=== PATIENT | female | born 1970 | race Caucasian/White ===

== ENCOUNTER 2018-09-10 20:11 | Emergency (ER) | payer MEDICAID, OTHER ==
[~2018-09-10] VITALS: Ht 162.6 cm; Wt 80.3 kg
[2018-09-10 20:15] VITALS: RESP 18; Ht 162.6 cm; Wt 80.3 kg
[2018-09-10] MEDS ORDERED: SOD CHLORIDE 0.9% 500 ML IV STA (20:56)
[2018-09-10] MEDS ORDERED: FAMOTIDINE 20 MG INJ IV STA (20:56)
[2018-09-10] MEDS ORDERED: ONDANSETRON 4 MG INJ IV STA (20:56)
--- NOTE | 2018-09-10 20:56 | ERD ---
ER Documentation Chief Complaint Chief Complaint RUQ PAIN RADIATING TO BACK X'S 4 DAYS HPI 47-year-old female, previously healthy, presents to the emergency department, complaining of 4 days with worsening of right upper quadrant pain radiating to the back, described as dull, constant, 7/10. She denies nausea or vomiting, no diarrhea or constipation, no fever or chills. She also reports a history of similar episodes in the past. ROS All systems reviewed and are negative except as per history of present illness. Medications Home Meds Active Scripts Acetaminophen* (Tylenol*) 325 Mg Tablet, 2 TAB PO Q6 PRN for PAIN AND OR ELEVATED TEMP, #20 TAB Prov:YVETTE DIAZ MD 09/10/18 Ranitidine Hcl* (Zantac*) 150 Mg Tablet, 150 MG PO BID PRN for EPIGASTRIC PAIN for 15 Days, #30 TAB Prov:YVETTE DIAZ MD 09/10/18 Allergies Allergies: Coded Allergies: No Known Allergy (Unverified , 06/23/13) PMhx/Soc Medical and Surgical Hx: pt denies Surgical Hx History of Surgery: No Anesthesia Reaction: No Hx Neurological Disorder: No Hx Respiratory Disorders: No Hx Cardiac Disorders: Yes (HTN ) Hx Psychiatric Problems: No Hx Miscellaneous Medical Probl: No Hx Alcohol Use: No Hx Substance Use: No Hx Tobacco Use: No Smoking Status: Never smoker Physical Exam Vitals Vital Signs Date Temp Pulse Resp B/P (MAP) Pulse Ox O2 O2 Flow FiO2 Time Delivery Rate 09/10/18 97.0 78 18 183/84 98 20:15 (117) Physical Exam Patient alert, oriented, vital signs stable. HEAD: Normocephalic, atraumatic. EYES: PERRLA, EOMI, Sclera and conjunctiva appear normal. NOSE: Clear and patent nostrils. EARS: Canals clear, tympanic membranes WNL. MOUTH: normal lips and tongue, no oral lesions. THROAT: Normal oropharynx, no tonsillar exudates. NECK: Supple, No lymphadenopathy. Full ROM without pain or tenderness. HEART: RRR, no rubs, murmurs, clicks or gallops. LUNGS: Clear to auscultation. ABDOMEN: Soft, mild tenderness to deep palpation of the epigastric area,? Wallace sign, without masses or hepatosplenomegaly. EXTREMITIES: No edema bilaterally. BACK: Full ROM, no deformity, normal back exam NEURO: Cranial nerves grossly intact, no motor or sensory deficit SKIN: No rashes, no petechia. Result Diagram: 09/10/18211709/10/182117 Results 24 hrs Laboratory Tests Test 09/10/18 21:18 White Blood Count 7.2 10^3/ul Red Blood Count 4.35 10^6/ul Hemoglobin 11.6 g/dl Hematocrit 36.5 % Mean Corpuscular Volume 83.9 fl Mean Corpuscular Hemoglobin 26.7 pg Mean Corpuscular Hemoglobin Concent 31.8 g/dl Red Cell Distribution Width 14.3 % Platelet Count 260 10^3/UL Mean Platelet Volume 10.1 fl Immature Granulocytes % 0.300 % Neutrophils % 47.7 % Lymphocytes % 41.5 % Monocytes % 6.1 % Eosinophils % 3.6 % Basophils % 0.8 % Nucleated Red Blood Cells % 0.0 /100WBC Immature Granulocytes # 0.020 10^3/ul Neutrophils # 3.4 10^3/ul Lymphocytes # 3.0 10^3/ul Monocytes # 0.4 10^3/ul Eosinophils # 0.3 10^3/ul Basophils # 0.1 10^3/ul Nucleated Red Blood Cells # 0.0 10^3/ul Urine Color YELLOW Urine Clarity SLIGHTLY CLOUDY Urine pH 6.0 Urine Specific Cu[place] 1.021 Urine Ketones NEGATIVE mg/dL Urine Nitrite NEGATIVE mg/dL Urine Bilirubin NEGATIVE mg/dL Urine Urobilinogen NEGATIVE mg/dL Urine Leukocyte Esterase NEGATIVE Jennie/ul Urine Microscopic RBC 2 /HPF Urine Microscopic WBC 1 /HPF Urine Squamous Epithelial Cells FEW /HPF Urine Hemoglobin 1+ mg/dL Urine Glucose NEGATIVE mg/dL Urine Total Protein NEGATIVE mg/dl Urine Test NEGATIVE Sodium Level 142 mmol/L Potassium Level 4.0 mmol/L Chloride Level 106 mmol/L Carbon Dioxide Level 27 mmol/L Anion Gap 9 Blood Urea Nitrogen 18 mg/dl Creatinine 0.97 mg/dl Est Glomerular Filtrat Rate mL/min > 60 mL/min Glucose Level 85 mg/dl Calcium Level 9.4 mg/dl Total Bilirubin 0.4 mg/dl Direct Bilirubin 0.00 mg/dl Indirect Bilirubin 0.4 mg/dl Aspartate Amino Transf (AST/SGOT) 29 IU/L Alanine Aminotransferase (ALT/SGPT) 36 IU/L Alkaline Phosphatase 65 IU/L Total Protein 7.7 g/dl Albumin 4.4 g/dl Globulin 3.30 g/dl Albumin/Globulin Ratio 1.33 Lipase 182 U/L Current Medications Medications Dose Sig/Carli Start Time Status Last (Trade) Ordered Route PRN Stop Time Admin Dose Reason Admin Sodium 500 ml @ Q1H STAT 09/10/18 DC 09/10/18 Chloride 500 mls/hr IV 20:56 21:26 09/10/18 21:55 Ondansetron 4 mg ONCE STAT 09/10/18 DC 09/10/18 HCl (Zofran IV 20:56 21:25 Inj) 09/10/18 21:02 Famotidine 20 mg ONCE STAT 09/10/18 DC 09/10/18 (Pepcid Iv) IV 20:56 21:25 09/10/18 21:02 Patient: INEZ AGUILAR : 1970 Age: 47 Sex: F MR #: [id number] DOS: 09/10/182055 Ordering MD: YVETTE DIAZ MD Location: [facility] Room/Bed: PROCEDURE: US Abdomen. CLINICAL INDICATION: abdominal pain TECHNIQUE: Multiple real-time images were acquired of the patient's right upper quadrant abdomen and retroperitoneum utilizing a high resolution transducer. COMPARISON: 06/23/13 FINDINGS: The liver demonstrates increased echogenicity. The liver is enlarged in size and no focal solid lesions are seen. The liver measures 19.3 cm in length. The portal vein is patent with normal direction of flow. No intrahepatic biliary dilatation is seen. The gallbladder is contracted. No gallstones are identified within the gallbladder. There is no pericholecystic fluid or gallbladder wall thickening. The common bile duct measures 4 mm in maximal dimension. The visualized portions of the pancreas are unremarkable. The tail of the pancreas is not seen. No free fluid is identified. The right kidney is normal in size, and demonstrate normal echogenicity and cortical thickness. The right kidney measures 11.5 cm in long dimension. There is no evidence of hydronephrosis. There are no kidney stones. RPTAT: AA IMPRESSION: Mild hepatomegaly with fatty liver. Procedures/MDM Vital signs stable. Differential diagnosis include but not limited to: UTI, colitis, gastroenteritis, kidney stones, irritable bowel syndrome, inflammatory bowel syndrome, malabsorption syndrome, cholelithiasis, food intolerance, medication side effect, pancreatitis, diverticulitis, bowel obstruction. Physical examination and clinical presentation consistent most likely with GERD, no evidence of acute abdomen. During the ED course the patient remained stable, no new complaints. The patient received treatment with IV fluids and IV medications presenting overall improvement of the symptoms. Results and clinical impression discussed with the patient who agrees with management. The patient is stable to be treated outpatient and will be discharg ed home; some side effects of prescribed medications (headache, rash, nausea, vomiting, diarrhea, drowsiness, habituation, bleeding, hypertension, interactions with other medications) were reviewed. The patient was informed that the evaluation in the emergency department has been done to rule out an acute emergency, therefore, chronic conditions like malignancy or other diseases have not been evaluated; therefore, the patient was instructed to follow up with the primary care provider in the next 48h. If symptoms persist, worsen or new symptoms develop, then patient should return to the ED immediately. Instructions explained and given directly by me to the patient with acknowledgment and demonstrated understanding. Disclaimer: Inadvertent spelling and grammatical errors are likely due to EHR/dictation software use and do not reflect on the overall quality of patient care. Also, please note that the electronic time recorded on this note does not necessarily reflect the actual time of the patient encounter. Departure Diagnosis: Primary Impression: Abdominal pain Additional Impression: GERD (gastroesophageal reflux disease) Condition: Stable Additional Instructions: Muchas cara por [facility] para dudley servicio. Esperamos que en dudley visita a la shirlene de emergencia dudley problema medico haya sido solucionado y que se sienta mucho mejor. Para estar seguros que dudley mejoria sigue en proceso, le pedimos el favor de hacer rolly brenna de seguimiento medico con dudley doctor primario en los proximos 2-4 carrero. Lleve con usted estos documentos y las medicinas recetadas. Si kole sintomas empeoran, NO SE ESPERE, por favor regrese a shirlene de emergencia INMEDIATAMENTE. En kaylynn que usted no tenga un mdico de atencin primaria: Llame al mdico o clnica comunitaria de referencia que aparece abajo kari las horas de consultorio para hacer rolly brenna para que le vean. CLINICAS: [facility] [phone] [address] [facility] [phone] [address] [facility] [phone] [address] [facility] [phone] [address] [facility] [phone] [address] [facility]. [phone] YVETTE RIVERA MD Sep 10, 2018 20:56
[2018-09-10] MEDS ORDERED: RANI150T35 PO (22:17)
[2018-09-10] MEDS ORDERED: ACET325T33 PO (22:19)
[2018-09-10 22:38] VITALS: BP 127/74; PULSE 62
== END 2018-09-10 22:39 | disposition home or self-care (01) ==
LOC: FTE 20:11
DX: K21.9 Gastro-esophageal reflux disease without esophagitis (principal); I10 Essential (primary) hypertension
CPT/HCPCS: 36415; 76705; 80053; 81001; 83690; 84703; 85025; 96374; 96375; J2405; J7040; Z7502; Z7610

== ENCOUNTER 2018-12-03 06:28 | Emergency (ER) | payer OTHER ==
[~2018-12-03] VITALS: Ht 157.5 cm; Wt 78.0 kg
[~2018-12-03 06:28] MED LIST: ACET325T33 PO; RANI150T35 PO
[2018-12-03 06:30] VITALS: BP 140/78; PULSE 78; RESP 18; Ht 157.5 cm; Wt 78.0 kg
[2018-12-03] MEDS ORDERED: LEVO5TAB28 PO (06:47)
[2018-12-03] MEDS ORDERED: NAPR-985 PO (06:47)
--- NOTE | 2018-12-03 07:08 | ERD ---
ER Documentation Chief Complaint Chief Complaint SORE THROAT HPI 47-year-old female presenting with sore throat x14 days. Patient has no runny nose and has a mild dry cough. Denies fevers. Takes Motrin occasionally with mild alleviation however pain returns. Pain with swallowing. Denies any neck pain. Has never had this pain before. Medical history is hypertension. NKDA. Surgical history . Social history denies ROS All systems reviewed and are negative except as per history of present illness. Medications Home Meds Active Scripts Levocetirizine Dihydrochloride (Xyzal) 5 Mg Tablet, 5 MG PO QPM, #30 TAB Prov:KOREY MAGALLON PA-C 12/03/18 Naproxen* (Naprosyn*) 500 Mg Tablet, 500 MG PO BID PRN for PAIN AND/OR INFLAMMATION, #30 TAB Prov:KOREY MAGALLON PA-C 12/03/18 Acetaminophen* (Tylenol*) 325 Mg Tablet, 2 TAB PO Q6 PRN for PAIN AND OR ELEVATED TEMP, #20 TAB Prov:YVETTE DIAZ MD 09/10/18 Ranitidine Hcl* (Zantac*) 150 Mg Tablet, 150 MG PO BID PRN for EPIGASTRIC PAIN for 15 Days, #30 TAB Prov:YVETTE DIAZ MD 09/10/18 Allergies Allergies: Coded Allergies: No Known Allergy (Unverified , 06/23/13) PMhx/Soc History of Surgery: No Anesthesia Reaction: No Hx Neurological Disorder: No Hx Respiratory Disorders: No Hx Cardiac Disorders: Yes (HTN ) Hx Psychiatric Problems: No Hx Miscellaneous Medical Probl: No Hx Alcohol Use: No Hx Substance Use: No Hx Tobacco Use: No Smoking Status: Never smoker FmHx Family History: No diabetes, No coronary disease, No other Physical Exam Vitals Vital Signs Date Temp Pulse Resp B/P (MAP) Pulse Ox O2 O2 Flow FiO2 Time Delivery Rate 12/03/18 98.1 78 18 140/78 99 06:30 (98) Physical Exam GENERAL: The patient is well-appearing, well-nourished, in no acute distress HEENT: Atraumatic. Conjunctivae are pink. Pupils equal, round, and reactive to light. There is no scleral icterus. Tympanic membranes clear bilaterally. Oropharynx clear. NECK: C-spine is soft and supple. There is no meningismus. There is no cervical lymphadenopathy. CHEST: Clear to auscultation bilaterally. There are no rales, wheezes or rhonchi. HEART: Regular rate and rhythm. No murmurs, clicks, rubs or gallops. Procedures/MDM MDM: 47-year-old female presenting with a sore throat. Patient's oral exam is within normal limits. I have low suspicion for peritonsillar retropharyngeal abscess. I have low suspicion for strep throat. I have low suspicion for infectious process. I have low suspicion for throat thyroid abnormality. Patient exam is within normal limits. Patient likely has viral syndrome. Patient is discharged with strict ER precautions and told to follow-up with primary care within 1 to 2 days for close evaluation. Patient is told symptoms change or worsen to return immediately to the ER. All questions answered at discharge Departure Diagnosis: Primary Impression: Sore throat Condition: Stable Patient Instructions: When You Have a Sore Throat Referrals: [facility] YOU HAVE RECEIVED A MEDICAL SCREENING EXAM AND THE RESULTS INDICATE THAT YOU DO NOT HAVE A CONDITION THAT REQUIRES URGENT TREATMENT IN THE EMERGENCY DEPARTMENT. FURTHER EVALUATION AND TREATMENT OF YOUR CONDITION CAN WAIT UNTIL YOU ARE SEEN IN YOUR DOCTORS OFFICE WITHIN THE NEXT 1-2 DAYS. IT IS YOUR RESPONSIBILITY TO MAKE AN APPOINTMENT FOR FOLOW-UP CARE. IF YOU HAVE A PRIMARY DOCTOR --you should call your primary doctor and schedule an appointment IF YOU DO NOT HAVE A PRIMARY DOCTOR YOU CAN CALL OUR PHYSICIAN REFERRAL HOTLINE AT IF YOU CAN NOT AFFORD TO SEE A PHYSICIAN YOU CAN CHOSE FROM THE FOLLOWING [facility] [address] [facility]. [facility] [address] [facility] [facility] [address] [facility] [facility] [address] [facility]. [facility] [address] [facility]. [facility]. [address] Additional Instructions: FOLLOW UP WITH YOUR PRIMARY CARE PHYSICIAN TOMORROW.Return to this facility if you are not improving as expected. KOREY MAGALLON PA-C Dec 03, 2018 07:07
== END 2018-12-03 06:56 | disposition home or self-care (01) ==
LOC: FTE 06:28
DX: J02.9 Acute pharyngitis, unspecified (principal); I10 Essential (primary) hypertension
CPT/HCPCS: 99282

== ENCOUNTER 2019-01-11 12:59 | Emergency (ER) | payer OTHER ==
[~2019-01-11] VITALS: Ht 167.6 cm; Wt 79.4 kg
[~2019-01-11 12:59] MED LIST changes: +ABCC1C PO; +AMLO2.5T78 PO; +HYDR25TA6 PO; +LEVO5TAB28 PO; +NAPR-985 PO
[2019-01-11 13:01] VITALS: BP 148/94; PULSE 82; RESP 18; Ht 167.6 cm; Wt 79.4 kg
--- NOTE | 2019-01-11 13:51 | ERD ---
ER Documentation Chief Complaint Chief Complaint headache x2 days, thinks blood pressure high HPI 48-year-old female, with history of hypertension, presents the emergency department, complaining of 2 days with headache, described as throbbing, intermittent, 12/04. The patient feels like her blood pressure is high and she is requesting a refill for amlodipine and hydrochlorothiazide. Otherwise, the patient denies blurred vision, no fever, no chills, no neck rigidity, no distal weakness, numbness or tingling. ROS All systems reviewed and are negative except as per history of present illness. Medications Home Meds Active Scripts Tkvetwzlifbjg-Pypfrlvgxu-Lutwxdlb-Codeine* (Fioricet w/Codeine*) [id number] Cap, 1 CAP PO BID PRN for PAIN LEVEL 1-5, #10 CAP Prov:YVETTE DIAZ MD 01/11/19 Hydrochlorothiazide* (Hydrochlorothiazide*) 25 Mg Tab, 25 MG PO DAILY, #30 TAB Prov:YVETTE DIAZ MD 01/11/19 Amlodipine Besylate* (Amlodipine Besylate*) 2.5 Mg Tablet, 2.5 MG PO DAILY, #30 TAB Prov:YVETTE DIAZ MD 01/11/19 Levocetirizine Dihydrochloride (Xyzal) 5 Mg Tablet, 5 MG PO QPM, #30 TAB Prov:KOREY MAGALLON PA-C 12/03/18 Naproxen* (Naprosyn*) 500 Mg Tablet, 500 MG PO BID PRN for PAIN AND/OR INFLAMMATION, #30 TAB Prov:KOREY MAGALLON PA-C 12/03/18 Acetaminophen* (Tylenol*) 325 Mg Tablet, 2 TAB PO Q6 PRN for PAIN AND OR ELEVATED TEMP, #20 TAB Prov:YVETTE DIAZ MD 09/10/18 Ranitidine Hcl* (Zantac*) 150 Mg Tablet, 150 MG PO BID PRN for EPIGASTRIC PAIN for 15 Days, #30 TAB Prov:YVETTE IDAZ MD 09/10/18 Allergies Allergies: Coded Allergies: No Known Allergy (Unverified , 01/11/19) PMhx/Soc History of Surgery: No Anesthesia Reaction: No Hx Neurological Disorder: No Hx Respiratory Disorders: No Hx Cardiac Disorders: Yes (HTN ) Hx Psychiatric Problems: No Hx Miscellaneous Medical Probl: No Hx Alcohol Use: No Hx Substance Use: No Hx Tobacco Use: No Smoking Status: Never smoker FmHx Family History: diabetes; No coronary disease Physical Exam Vitals Vital Signs Date Temp Pulse Resp B/P (MAP) Pulse Ox O2 O2 Flow FiO2 Time Delivery Rate 01/11/19 97.3 82 18 148/94 97 13:01 (112) Physical Exam Const: No acute distress Head: Atraumatic Eyes: Normal Conjunctiva ENT: Normal External Ears, Nose and Mouth. Neck: Full range of motion. No meningismus. Resp: Clear to auscultation bilaterally Cardio: Regular rate and rhythm, no murmurs Abd: Soft, non tender, non distended. Normal bowel sounds Skin: No petechiae or rashes Back: No midline or flank tenderness Ext: No cyanosis, or edema Neur: Awake and alert Psych: Normal Mood and Affect Procedures/MDM Vital signs stable, Physical exam unremarkable, neurovascular exam intact. Differential diagnosis include but not limited to: Classical migraine, sinusitis, visual corrective problems, side effects of medications, dehydration, electrolyte imbalance, endocrine/autoimmune medical condition, stress, anxiety, tension headache. Low suspicion for meningitis, [employer] tumor, cerebrovascular event. Physical examination and clinical presentation consistent most likely with tension headache. During the ED course the patient remained stable, no new complaints. Results and clinical impression discussed with patient who agrees with management. The patient is stable to be treated outpatient and will be discharged home, some side effects of prescribed medications (headache, rash, na usea, vomiting, diarrhea, drowsiness, habituation, bleeding, hypertension, interactions with other medications) were reviewed. Follow up with the primary care provider in the next 48h has been recommended. If symptoms persist, worsen or new symptoms develop, then patient should return to the ED immediately. Instructions explained and given directly by me to the patient with ackn owledgment and demonstrated understanding. Disclaimer: Inadvertent spelling and grammatical errors are likely due to EHR/dictation software use and do not reflect on the overall quality of patient care. Also, please note that the electronic time recorded on this note does not necessarily reflect the actual time of the patient encounter. Departure Diagnosis: Primary Impression: Headache Additional Impression: Medication refill Condition: Stable Patient Instructions: Self-Care for Headaches Additional Instructions: Muchas cara por [facility] para dudley servicio. Esperamos que en dudley visita a la shirlene de emergencia dudley problema medico haya sido solucionado y que se sienta mucho mejor. Para estar seguros que dudley mejoria sigue en proceso, le pedimos el favor de hacer rolly brenna de seguimiento medico con dudley doctor primario en los proximos 2-4 carrero. Lleve con usted estos documentos y las medicinas recetadas. Si kole sintomas empeoran, NO SE ESPERE, por favor regrese a shirlene de emergencia INMEDIATAMENTE. En kaylynn que usted no tenga un mdico de atencin primaria: Llame al mdico o clnica comunitaria de referencia que aparece abajo kari las horas de consultorio para hacer rolly brenna para que le vean. CLINICAS: [facility] [phone] [address] [facility] [phone] [address] [facility]. [facility] [phone] [address] [facility]. [facility] [phone] [address] [facility]. [place] [phone] [facility]. [phone] YVETTE RIVERA MD Jan 11, 2019 13:51
== END 2019-01-11 14:43 | disposition home or self-care (01) ==
LOC: FTE 12:59
DX: R51 Headache (principal); I10 Essential (primary) hypertension; Z76.0 Encounter for issue of repeat prescription
CPT/HCPCS: 99281